=== PATIENT | male | born 1975 | race Caucasian/White ===

== ENCOUNTER 2016-03-10 13:48 | Emergency (ER) | payer SELFPAY ==
[~2016-03-10] VITALS: Ht 165.1 cm; Wt 76.7 kg
[~2016-03-10 13:48] MED LIST: AMOXICILLIN875 MG PO; BACTRIM,SEPT1 TABLET PO; CIPRO500 MG PO; Ecotrin PO; FIORICET WI1 CAPSULE PO; FLEXERIL10 MG PO; HYDROCODON-ACE1 EAC7 PO; KEFLEX500 MG PO; MEDROL DOSEPAK4 MG PO; MIRALAX255 GM PO; MOTRIN800 MG PO; NAPROSYN500 MG PO; NOHOMEMEDS; NORCO 5/3251 TABLET PO; PREDNISONE20 MG PO; PROMETHAZINE HC25 M1 PO; TESSALON PERLE100 MG PO; TORADOL10 MG PO; TRAMADOL HCL50 MG PO; ULTRAM50 MG PO; VALIUM5 MG PO; ZANTAC300 MG PO; ZOFRAN ODT4 MG PO; ZOFRAN4 MG PO
[2016-03-10 13:56] VITALS: BP 120/74
[2016-03-10] MEDS ORDERED: SUDAFED 12-HOU120 MG PO (15:42)
== END 2016-03-10 16:33 | disposition home or self-care (01) ==
LOC: EME 13:48
DX: J06.9 Acute upper respiratory infection, unspecified (principal); L60.0 Ingrowing nail
CPT/HCPCS: 99281; 99283

== ENCOUNTER 2016-03-12 19:24 | Emergency (ER) | payer SELFPAY ==
[~2016-03-12] VITALS: Ht 165.1 cm; Wt 76.1 kg
[~2016-03-12 19:24] MED LIST changes: +SUDAFED 12-HOU120 MG PO
[2016-03-12] MEDS ORDERED: BENADRYL50 MG PO (22:16)
[2016-03-12] MEDS ORDERED: ULTRAM50 MG PO (22:16)
[2016-03-12] MEDS ORDERED: AFRIN,GENASAL D15 ML BOTH NARES (22:16)
[2016-03-12 22:41] VITALS: BP 106/80
== END 2016-03-12 22:42 | disposition home or self-care (01) ==
LOC: EME 19:24 → EXP 19:24
DX: H92.02 Otalgia, left ear (principal)
CPT/HCPCS: 99281; 99283

== ENCOUNTER 2016-06-27 11:46 | Emergency (ER) | payer SELFPAY ==
[~2016-06-27] VITALS: Ht 165.1 cm; Wt 77.0 kg
[~2016-06-27 11:46] MED LIST changes: +AFRIN,GENASAL D15 ML BOTH NARES; +BENADRYL50 MG PO
[2016-06-27 12:48] VITALS: BP 136/72
== END 2016-06-27 12:48 | disposition home or self-care (01) ==
LOC: EXP 11:46 → EME 11:46 → EXP 12:48
DX: J30.9 Allergic rhinitis, unspecified (principal)
CPT/HCPCS: 99281; 99283

== ENCOUNTER 2016-06-29 09:50 | Emergency (ER) | payer SELFPAY ==
[~2016-06-29] VITALS: Ht 165.1 cm; Wt 76.8 kg
[2016-06-29] MEDS ORDERED: ALLEGRA-D 241 TABLET PO (10:57)
[2016-06-29] MEDS ORDERED: FLONASE16 G1 BOTH NARES (10:57)
[2016-06-29 11:13] VITALS: BP 122/82
== END 2016-06-29 11:13 | disposition home or self-care (01) ==
LOC: EME 09:50
DX: J30.2 Other seasonal allergic rhinitis (principal); R09.81 Nasal congestion; R05 Cough
CPT/HCPCS: 71020; 99281; 99282

== ENCOUNTER 2016-10-12 13:54 | Emergency (ER) | payer SELFPAY ==
[~2016-10-12] VITALS: Ht 172.7 cm; Wt 76.5 kg
[~2016-10-12 13:54] MED LIST changes: +ALLEGRA-D 241 TABLET PO; +FLONASE16 G1 BOTH NARES
[2016-10-12] MEDS ORDERED: NAPROXEN500 MG PO (16:19)
[2016-10-12 16:28] VITALS: BP 120/75
== END 2016-10-12 16:38 | disposition home or self-care (01) ==
LOC: EME 13:54
DX: S46.912A Strain of unspecified muscle, fascia and tendon at shoulder and upper arm level, left arm, initial encounter (principal); X58.XXXA Exposure to other specified factors, initial encounter; Y93.H9 Activity, other involving exterior property and land maintenance, building and construction; Y92.007 Garden or yard of unspecified non-institutional (private) residence as the place of occurrence of the external cause
CPT/HCPCS: 99281; 99283

== ENCOUNTER 2017-06-19 09:19 | Emergency (ER) | payer SELFPAY ==
[~2017-06-19] VITALS: Ht 165.1 cm; Wt 76.6 kg
[~2017-06-19 09:19] MED LIST changes: +NAPROXEN500 MG PO
[2017-06-19 10:23] LABS: HEMATOCRIT 44.5 % (38.0-50.0); HEMOGLOBIN 15.3 G/DL (12.5-16.6); MCH 30.2 PG (29.0-34.0); MCHC 34.4 G/DL (30.0-36.0); MCV 87.9 FL (86-99); PLATELET COUNT 256 K/uL (156-360); RBC DIS.WIDTH-CV 12.5 % (11.8-14.6); RBC DIS.WIDTH-SD 40.4 % (39-53); RED BLOOD COUNT 5.06 M/uL (4.00-5.50)
[2017-06-19 10:52] LABS: CHLORIDE 107 mEq/L (99-109); POTASSIUM 4.5 mEq/L (3.7-5.4); SODIUM 140 mEq/L (136-147)
[2017-06-19 10:53] LABS: GLUCOSE 97 mg/dL (70-99)
[2017-06-19 10:57] LABS: CREATININE 1.2 mg/dL (0.6-1.3); GFR ESTIMATE (CALCULATED) > 59 mL/min/ (58.99-99999)
[2017-06-19 10:58] LABS: UREA NITROGEN (BUN) 20 mg/dL (9-23)
[2017-06-19 12:21] LABS: APPEARANCE CLEAR ((CLEAR)); BILIRUBIN NEGATIVE; BLOOD NEGATIVE; COLOR AMBER ((YELLOW)); GLUCOSE (STRIP) NEGATIVE; KETONES NEGATIVE; LEUKOCYTES NEGATIVE; NITRITE POSITIVE; PROTEIN (STRIP) NEGATIVE; SPECIFIC GRAVITY 1.024 (1.000-1.030)
[2017-06-19 13:03] LABS: MUCUS 1+ /LPF
[2017-06-19 13:05] LABS: RED BLOOD CELLS 0-5 /HPF (0-5); WHITE BLOOD CELLS 0-5 /HPF (0-5)
[2017-06-19 13:06] LABS: EPITHELIAL CELLS RARE /HPF; UCUL ADDED? NO
[2017-06-19 13:07] LABS: BACTERIA RARE /HPF
[2017-06-19] MEDS ORDERED: BACTRIM,SEPT1 TABLET PO (13:26)
[2017-06-19] MEDS ORDERED: ZOFRAN ODT4 MG PO (13:26)
[2017-06-19 13:33] VITALS: BP 120/88
== END 2017-06-19 13:36 | disposition home or self-care (01) ==
LOC: EME 09:19
DX: N39.0 Urinary tract infection, site not specified (principal); R10.31 Right lower quadrant pain; R11.2 Nausea with vomiting, unspecified; Z87.442 Personal history of urinary calculi; Z91.040 Latex allergy status
CPT/HCPCS: 74176; 80048; 81003; 85027; 99281; 99284; J1885; J2405; J7030